=== PATIENT | male | born 1980 | race Caucasian/White ===

== ENCOUNTER 2017-06-18 10:14 | Emergency (ER) | payer OTHER ==
[~2017-06-18] VITALS: Ht 175.3 cm; Wt 103.0 kg
[2017-06-18 10:25] VITALS: Ht 175.3 cm; Wt 103.0 kg
[2017-06-18] MEDS ORDERED: SODIUM CHLORIDE 0.9% 1000ML 2,000 ML IV STA (11:11)
[2017-06-18] MEDS ORDERED: DiphenhydrAMINE HCL 50 MG/ML VIAL IV STA (11:11)
[2017-06-18] MEDS ORDERED: KETOROLAC TROMETHAMINE 30 MG/ML VIAL IV STA (11:11)
--- NOTE | 2017-06-18 11:15 | EMERGENCY ROOM VISIT NOTE ---
History Report prepared by Scribe: Robbie Berry Under the Supervision of: Dr. Jose A Silvestre M.D. First contact with patient: 11:04 Chief Complaint: CONFUSION Stated Complaint: DIZZINESS, DELUSIONAL (CANT PROCESS ANYTHING) FEVE Nursing Triage Summary: Pt is on a tour, flew into [place] yesterday from [place], been on a bus all night from [place] to here. Yesterday morning pt developed confusion, dizziness , fevers, and headaches. Denies abdominal pain, denies N/V/D, denies urinary symptoms. History of Present Illness The patient is a 36 year old male who presents to the Emergency Room with complaints of febrile illness. Began 1 day ago. Associated with dizziness, fevers, chills, body aches, runny nose, fatigue, cough, headache, and lightheaded. Denies neuro deficits, vision changes, nor hallucinations. Body aches are diffuse and worse over bilateral flanks. No urinary/bowel changes. Using dayquil last night without improvement. Seen at Urgent Care and sent here for evaluation. Notes traveling on bus for concert. Denies neck stiffness , rashes, vomiting, passing out. No recent abx. Source of History: patient Onset: 1 day ago Position: other (global) Associated Symptoms: + headache, + cough, No nausea, No vomiting Note: Patient reports rhinorrhea, dizziness, and generalized muscle weakness. Review of Systems See HPI for pertinent positives & negatives. A total of 10 systems reviewed and were otherwise negative. Social History Smoking Status: Never Smoker Current/Historical Medications Scheduled Oseltamivir (Tamiflu), 75 MG PO BID Allergies Coded Allergies: No Known Allergies (Unverified , 06/18/17) Physical Exam Vital Signs Date Time Temp Pulse Resp B/P (MAP) Pulse Ox O2 Delivery O2 Flow Rate FiO2 06/18/17 13:21 37.5 82 24 110/56 96 06/18/17 12:43 82 20 122/69 95 Room Air 06/18/17 11:55 37.4 86 20 107/72 96 Room Air 06/18/17 10:25 37.3 96 18 143/84 95 Room Air Physical Exam GENERAL: Patient is uncomfortable appearing and in mild distress. HEENT: No acute trauma, normocephalic atraumatic, mucous membranes dry, no nasal congestion, no scleral icterus. Rhinorrhea bilateral nares. NECK: No stridor, no adenopathy, no meningismus, trachea is midline. LUNGS: No dyspnea. Clear to auscultation and equal bilaterally. No wheeze, no rhonchi. HEART: Regular rate and rhythm. No murmurs, rubs, gallops appreciated. ABDOMEN: Soft, nontender, bowel sounds positive, no masses appreciated, no peritonitis. BACK: No midline tenderness, no CVA tenderness EXTREMITIES: Normal motion all extremities, no cyanosis, no edema. NEUROLOGIC: Alert and oriented, no acute motor or sensory deficits, no focal weakness, cranial nerves grossly intact. SKIN: No rash, no jaundice, no diaphoresis. Heavily tattooed. Medical Decision & Procedures Laboratory Results 06/18/17 11:20 Red Blood Count 5.21, Mean Corpuscular Volume 93.7, Mean Corpuscular Hemoglobin 31.5, Mean Corpuscular Hemoglobin Concent 33.6, Mean Platelet Volume 11.0, Neutrophils (%) (Auto) 69.0, Lymphocytes (%) (Auto) 15.9, Monocytes (%) (Auto) 14.8, Eosinophils (%) (Auto) 0.0, Basophils (%) (Auto) 0.1, Neutrophils # (Auto ) 5.54, Lymphocytes # (Auto) 1.28, Monocytes # (Auto) 1.19, Eosinophils # (Auto ) 0.00, Basophils # (Auto) 0.01 06/18/17 11:20 Test 06/18/17 11:20 White Blood Count 8.04 K/uL (4.8-10.8) Red Blood Count 5.21 M/uL (4.7-6.1) Hemoglobin 16.4 g/dL (14.0-18.0) Hematocrit 48.8 % (42-52) Mean Corpuscular Volume 93.7 fL (80-100) Mean Corpuscular Hemoglobin 31.5 pg (25-34) Mean Corpuscular Hemoglobin Concent 33.6 g/dl (32-36) Platelet Count 152 K/uL (130-400) Mean Platelet Volume 11.0 fL (7.4-10.4) Neutrophils (%) (Auto) 69.0 % Lymphocytes (%) (Auto) 15.9 % Monocytes (%) (Auto) 14.8 % Eosinophils (%) (Auto) 0.0 % Basophils (%) (Auto) 0.1 % Neutrophils # (Auto) 5.54 K/uL (1.4-6.5) Lymphocytes # (Auto) 1.28 K/uL (1.2-3.4) Monocytes # (Auto) 1.19 K/uL (0.11-0.59) Eosinophils # (Auto) 0.00 K/uL (0-0.5) Basophils # (Auto) 0.01 K/uL (0-0.2) RDW Standard Deviation 43.3 fL (36.4-46.3) RDW Coefficient of Variation 12.7 % (11.5-14.5) Immature Granulocyte % (Auto) 0.2 % Immature Granulocyte # (Auto) 0.02 K/uL (0.00-0.02) Anion Gap 3.0 mmol/L (3-11) Est Creatinine Clear Calc Drug Dose 94.8 ml/min Estimated GFR () 84.1 Estimated GFR (Non- 72.6 BUN/Creatinine Ratio 11.3 (10-20) Calcium Level 9.4 mg/dl (8.5-10.1) Laboratory results as reviewed by me. Medications Administered Medications (Trade) Dose Ordered Sig/Roberto Route Start Time Stop Time Status Last Admin Dose Admin Sodium Chloride 2,000 ml @ 999 mls/hr Q2H1M STAT IV 06/18/17 11:11 06/18/17 13:11 DC 06/18/17 11:11 999 MLS/HR Diphenhydramine HCl (Benadryl Inj) 50 mg NOW STAT IV 06/18/17 11:11 06/18/17 11:12 DC 06/18/17 11:41 50 MG Ketorolac Tromethamine (Toradol Inj) 30 mg NOW STAT IV 06/18/17 11:11 06/18/17 11:12 DC 06/18/17 11:42 30 MG Oseltamivir Phosphate (Tamiflu Cap) 75 mg NOW STAT PO 06/18/17 12:55 06/18/17 12:56 DC 06/18/17 13:10 75 MG ED Course 1104: The patient was evaluated in room B7. A complete history and physical exam was performed. 1215: I checked on the patient and ordered additional fluids. 1249: I checked on the patient and they are doing better. 1256: I spoke with the patient about rest, hydration, and the use fo Tamiflu. I made it very clear that if neurological deficits, worsening symptoms, and hallucinations, that he should call 911 immediately. 1300: Reevaluated the patient. Discussed results and discharge instructions: He verbalized understanding and agreement. The patient is ready for discharge. Medical Decision Differential: Viral, Pharyngitis, Pneumonia, Influenza, Meningitis, Sepsis, Bacteremia, Endocrine, Toxicologic, amongst other pathologies entertained. 36 yr old male with fevers, chills, cough, headache, body aches, dizziness and generalized fatigue. Exam consistent with flu like findings and patient does not appear septic. He does not have meningitis by examination. He is not have hallucinations nor is he encephalopathic. He is traveling but symptoms not consistent with central venous sinus thrombosis. WBC is OK. Mildly elevated Cr for age consistent with dehydration. Lungs clear and I feel CXR not indicated. No past medical history to suspect endo and denies toxic cause. Given the high prevalence of influenza and his consistent symptoms I feel this is most likely flu. He is dehydrated thus will give IV fluids. Given level of symptoms will go ahead and start Tamiflu, though aware of it's limitations. Medication Reconcilliation Current Medication List: was personally reviewed by me Blood Pressure Screening Patient's blood pressure: Elevated blood pressure Blood pressure disposition: Elevated BP felt to be situational Impression Primary Impression: Flu-like symptoms Additional Impression: Dehydration Scribe Attestation The scribe's documentation has been prepared under my direction and personally reviewed by me in its entirety. I confirm that the note above accurately reflects all work, treatment, procedures, and medical decision making performed by me. Departure Information Dispostion Home / Self-Care Prescriptions Oseltamivir (Tamiflu) 75 Mg Cap 75 MG PO BID for 5 Days, #10 CAP Prov: Jose A Silvestre M.D. 06/18/17 Referrals No Doctor, Assigned (PCP) Patient Instructions My [facility] [address] Additional Instructions Given your symptoms it is likely this is Influenza, especially given the prevalence of it currently across the [place]. Return immediately if worsening symptoms, weakness, severe headache, neck stiffness, rash, hallucinations, passing out or other concerns. It is very important you keep well hydrated. Use Tylenol and Motrin as needed for fevers and body aches. Problem Qualifiers
[2017-06-18 11:45] LABS: BASO % 0.1 %; BASO ABS # 0.01 K/uL (0-0.2); HEMATOCRIT 48.8 % (42-52); HEMOGLOBIN 16.4 g/dL (14.0-18.0); IG# 0.02 K/uL (0.00-0.02); LYMPH % 15.9 %; LYMPH ABS # 1.28 K/uL (1.2-3.4); MEAN CELL VOLUME 93.7 fL (80-100); MEAN CORPUSCULAR HEMOGLOBIN 31.5 pg (25-34); MEAN CORPUSCULAR HGB CONC 33.6 g/dl (32-36); MONO % 14.8 %; MONO ABS # 1.19 K/uL (0.11-0.59); NEUT ABS # 5.54 K/uL (1.4-6.5); PLATELET COUNT 152 K/uL (130-400); RED CELL DISTRIBUTION WIDTH CV 12.7 % (11.5-14.5); RED CELL DISTRIBUTION WIDTH SD 43.3 fL (36.4-46.3); WHITE BLOOD COUNT 8.04 K/uL (4.8-10.8)
[2017-06-18 12:03] LABS: CALCIUM 9.4 mg/dl (8.5-10.1); CREATININE 1.25 mg/dl (0.60-1.40); POTASSIUM 4.3 mmol/L (3.5-5.1)
[2017-06-18] MEDS ORDERED: OSELTAMIVIR PHOSPHATE 75 MG CAP PO STA (12:55)
[2017-06-18] MEDS ORDERED: OSEL75CA12 PO (12:58)
[2017-06-18 13:21] VITALS: BP 110/56; PULSE 82; TEMP 37.5; O2SAT 96
== END 2017-06-18 13:20 | disposition home or self-care (01) ==
LOC: C.EDB 10:16
DX: R68.89 Other general symptoms and signs (principal); E86.0 Dehydration